=== PATIENT | female | born 1960 | race Caucasian/White ===

== ENCOUNTER → 2025-02-04 06:35 | Outpatient (REF) | payer OTHER, SELFPAY ==
[2025-02-04] MEDS: LEXISCAN 0.4 MG IV (08:42)
[2025-02-04] MEDS: FLUSH (NSS) 1 FLUSH IV (08:42)
== END ==
LOC: RCS 06:35
PROVIDERS: ATTENDING PHYSICIAN Internal Medicine Cardiovascular Disease; FAMILY PHYSICIAN Family Medicine
DX: R07.89 Other chest pain (principal)
CPT/HCPCS: 78452; 93017; A9500; J2785